=== PATIENT | female | born 1980 | race Caucasian/White ===

== ENCOUNTER 2020-03-10 09:10 | Emergency (ER) | payer OTHER ==
[2020-03-10] MEDS ORDERED: SODIUM CHLORIDE 0.9% 500ML 500 ML IVS ONE (09:51)
[2020-03-10] MEDS ORDERED: HYDROmorphone HCL INJ 2 MG/ML VIAL IV ONE (09:51)
[2020-03-10] MEDS ORDERED: cloNIDine HCL 0.1 MG TAB PO ONE (09:52)
--- NOTE | 2020-03-10 09:58 | ED.PDOC ---
History of Present Illness - General Chief Complaint: Back Pain or Injury Stated Complaint: left sided back/flank pain Time Seen by Provider: 03/10/20 09:47 Source: patient Exam Limitations: no limitations - History of Present Illness Initial Comments: L FLANK PAIN, INTERMITTENT. STARTED 5 D AGO. STABBING SPASMS X 10 MIN TO 1 HOUR. WORSE WITH MOVEMENT SUCH STANDING UPRIGHT. 10/16. NEVER HAD UTI IN PAST, BUT THEN UTI X 2 PAST MONTH. TOOK HER AM BP MEDS (TOPROL AND HCTZ). Timing/Duration: intermittent Quality/Severity: sharpness Method of Injury/Prior Injury: other - NO TRAUMA. Improving Factors: immobilization Worsening Factors: movement Allergies/Adverse Reactions: Allergies Penicillins Allergy (Unknown, Verified 03/10/20 09:26) Unknown Home Medications: Ambulatory Orders BuPROPion XL [Wellbutrin XL] 300 mg PO DAILY 03/10/20 Hctz 25 mg/Triamterene 37.5 mg [Dyazide-25] 1 tablet PO DAILY 03/10/20 Methylprednisolone [Medrol Dose Lei] 4 mg PO DAILY #1 tab 03/10/20 Metoprolol Succinate [Toprol Xl] 100 mg PO DAILY 03/10/20 Omeprazole 40 mg PO DAILY 03/10/20 Review of Systems - Review of Systems Constitutional: Denies: chills, fever EENTM: Denies: ear pain, nose congestion Respiratory: Denies: cough, short of breath Cardiology: Denies: chest pain, palpitations Gastrointestinal/Abdominal: Denies: diarrhea, nausea, vomiting Genitourinary: Denies: dysuria, frequency Musculoskeletal: Denies: neck pain Skin: Denies: lesions, rash Neurological: Denies: headache, weakness Endocrine: Denies: unexplained weight gain, unexplained weight loss Hematologic/Lymphatic: Denies: easy bleeding, easy bruising All other Systems: Reviewed and Negative Past Medical History (General) - Patient Medical History Hx Hypertension: Yes Hx Gastroesophageal Reflux: Yes Surgical History: cholecystectomy, Hysterectomy - Vaccination History Hx Influenza Vaccination: Yes Hx Pneumococcal Vaccination: No - Social History Hx Tobacco Use: No Hx Alcohol Use: Yes - occasional Hx Substance Use: No Hx Substance Use Treatment: No Hx Depression: No Family Medical History - Family History Mother Family History: Unknown Physical Exam - Physical Exam General Appearance: Alert, Other - UNCOMFORTABLE Eyes, Ears, Nose, Throat Exam: PERRL/EOMI, normal ENT inspection Neck Exam: full range of motion, normal inspection Cardiovascular/Respiratory: regular rate, rhythm, no M/R/G, normal breath sounds, no respiratory distress Peripheral Pulses: radial,right: 2+, radial,left: 2+ Gastrointestinal/Abdominal: normal bowel sounds, non tender - ABDOMEN AND BLADDER NTTP. , soft, no organomegaly, no pulsatile mass Back Exam: no vertebral tenderness, CVA tenderness (L) Extremity Exam: normal range of motion, non-tender Neurologic: alert, normal mood/affect Skin Exam: normal color, warm/dry Progress - Results/Orders Results/Orders: W/U NEG FOR CLEAR ETX. SINCE IT IS NOT A KIDNEY STONE, I SUSPECT ABD WALL MUSCULAR PAIN, IT IS EXACERBATED BY MOVEMENT/POSITIONAL (STANDING). THUS I WILL RX MEDROL DOSE PACK. PAIN PRESENTLY CONTROLLED IN ER. CT NEG FOR KIDNEY STONE, L OVARIAN CYST. HCG NEG. LIPASE NEG. UA NO BLOOD, NO UTI. CBC AND CMP NO CONCERNS. NOT A SURGICAL ABDOMEN. SAFE FOR DC TO HOME. HTN - CONTROLLED IN ER VIA CLONIDINE X 1. Departure - Departure Clinical Impression: Abdominal wall pain in left flank Hypertension Qualifiers: Hypertension type: essential hypertension Qualified Code(s): I10 - Essential (primary) hypertension Disposition: Discharge to Home or Self Care Condition: Good Departure Forms: ED Discharge - Pt. Copy, Patient Portal Self Enrollment Instructions: DI for Low Back Pain, Flank Pain (DC) Diet: resume usual diet Activity: increase activity as tolerated Prescriptions: Methylprednisolone [Medrol Dose Lei] 4 mg PO DAILY #1 tab Home Medications: Ambulatory Orders BuPROPion XL [Wellbutrin XL] 300 mg PO DAILY 03/10/20 Hctz 25 mg/Triamterene 37.5 mg [Dyazide-25] 1 tablet PO DAILY 03/10/20 Methylprednisolone [Medrol Dose Lei] 4 mg PO DAILY #1 tab 03/10/20 Metoprolol Succinate [Toprol Xl] 100 mg PO DAILY 03/10/20 Omeprazole 40 mg PO DAILY 03/10/20
[2020-03-10 10:35] VITALS: O2SAT 97
--- NOTE | 2020-03-10 10:35 | CT ---
EXAM DESCRIPTION: Abdomen t/Pelvis w/o Contrast CLINICAL HISTORY: 39 years, 39 years, Female, Female, SHARP L FLANK PAIN, POSS NEPHROLITHIASIS COMPARISON: None. TECHNIQUE: CT of the abdomen and pelvis is performed according to our non contrast protocol This exam was performed according to our departmental dose-optimization program, which includes automated exposure control, adjustment of the mA and/or kV according to patient size and/or use of iterative reconstruction technique. FINDINGS: Lung bases are clear without infiltrate or effusion or mass or hiatal hernia. Hepatomegaly and fatty replaced liver without focal lesion evident with surgical absence of the gallbladder. No ductal dilation noted. Modest splenomegaly without focal lesion. Small normal adrenal glands and normal appearance of the unenhanced pancreas. Normal caliber aorta with early mild aortic atherosclerotic calcification. Lobulated kidneys without cyst or mass or intrarenal stone disease or hydronephrosis. No specific left-sided abnormality noted. No evidence of left or right hydroureter noted and no evidence of distal ureteral or bladder stone evident. Normal caliber large and small bowel with normal-appearing retrocolic appendix right lower quadrant. Normal-appearing left colon without evidence of diverticulitis or significant diverticulosis. Abdominal or pelvic ascites not apparent. Within the pelvis apparent surgical absence of the uterus and unremarkable left adnexal region. Suspected approximate 5 x 3.5 cm right adnexal benign cyst with low attenuation values on noncontrast imaging. Follow-up pelvic sonography in 6-12 weeks recommended for reevaluation. Anterior abdominal wall and pelvic wall and inguinal regions unremarkable. Lumbar spine is unremarkable. IMPRESSION: 1. Normal-appearing left kidney without stone disease or hydronephrosis or hydroureter or cyst or mass. No bladder abnormalities or right renal abnormalities noted. 2. Hepatomegaly with prior cholecystectomy and fatty replacement of the liver. 3. Modest splenomegaly without focal lesion. 4. Oval 3.5 x 5 cm right adnexal mass, likely benign cyst. Follow-up pelvic sonography in 6-12 weeks for reevaluation recommended. Electronically signed by: Hilario Bishop MD 03/10/2020 10:34 AM [facility]
[2020-03-10 12:04] VITALS: BP 151/87; TEMP 97.1
== END 2020-03-10 12:04 | disposition home or self-care (01) ==
LOC: ER 09:10
DX: R10.9 Unspecified abdominal pain (principal); I10 Essential (primary) hypertension; K21.9 Gastro-esophageal reflux disease without esophagitis; Z88.0 Allergy status to penicillin; Z90.49 Acquired absence of other specified parts of digestive tract; Z79.899 Other long term (current) drug therapy
CPT/HCPCS: 36415; 74176; 80053; 81001; 83690; 84703; 85025; J1170; J7040